=== PATIENT | male | born 1995 | race Caucasian/White ===

== ENCOUNTER 2018-04-16 00:46 | Emergency (ER) | payer SELFPAY ==
[~2018-04-16] VITALS: Ht 177.8 cm; Wt 65.0 kg
[~2018-04-16 00:46] MED LIST: IBUP800T23 PO; ROBA750T3 PO
[2018-04-16 00:48] VITALS: BP 141/62; PULSE 119; RESP 18; TEMP 99.4; O2SAT 100
[2018-04-16] MEDS ORDERED: LIDOCAINE HCL 1% PF 30 ML VIAL ONE (01:27)
[2018-04-16] MEDS ORDERED: LIDOCAINE HCL 1% 50 ML VIAL INFIL ONE (01:30)
[2018-04-16] MEDS ORDERED: IBUP1TAB7 PO (01:43)
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
[2018-04-16] MEDS ORDERED: ACETAMINOPHEN/CODEINE 300 MG/30 MG TAB PO ONE (01:45)
== END 2018-04-16 02:09 | disposition home or self-care (01) ==
LOC: NEPD 00:46
DX: S05.11XA Contusion of eyeball and orbital tissues, right eye, initial encounter (principal); S01.111A Laceration without foreign body of right eyelid and periocular area, initial encounter; F12.10 Cannabis abuse, uncomplicated; F17.200 Nicotine dependence, unspecified, uncomplicated; Y04.0XXA Assault by unarmed brawl or fight, initial encounter
CPT/HCPCS: 12011

== ENCOUNTER 2018-04-26 17:39 | Emergency (ER) | payer SELFPAY ==
[~2018-04-26] VITALS: Ht 180.3 cm; Wt 66.0 kg
[~2018-04-26 17:39] MED LIST changes: +IBUP1TAB7 PO
[2018-04-26 18:03] VITALS: BP 120/62; PULSE 60; RESP 17; TEMP 98.2; O2SAT 100
--- NOTE | 2018-04-26 18:17 | PD ---
HPI Chief Complaint: Wound/Suture/Staple Re-Check Time Seen by Provider: 18:07 Travel History International Travel<30 days: No Contact w/Intl Traveler<30days: No Traveled to known affect area: No History of Present Illness HPI 23-year-old male presents emergency department for suture removal of the right eyelid. Says that the sutures have not been a problem from him and he denies any significant pain. Denies fevers or chills. Denies visual disturbances or changes. PFSH Past Medical History Diminished Hearing: No Social History Alcohol Use: Yes (OCCASIONAL ) Tobacco Use: Yes (1/2 PPD) Substance Use: Yes (MARIJUANA DAILY) Allergies-Medications (Allergen,Severity, Reaction): Coded Allergies: No Known Allergies (Unverified Adverse Reaction, Unknown, 04/26/18) Reported Meds & Prescriptions Reported Meds & Active Scripts Active Ibuprofen 800 Mg Tab 800 Mg PO Q6HR PRN Robaxin-750 (Methocarbamol) 750 Mg Tab 750 Mg PO TID Ibuprofen 800 Mg Tab 800 Mg PO TID 10 Days Review of Systems Except as stated in HPI: all other systems reviewed are Neg Physical Exam Narrative GENERAL: Well-nourished, well-developed patient, in NAD SKIN: Focused skin assessment warm/dry. No rashes or lesions. Right eyelid-near the lid margin [address] without significant erythema or edema. Patient able to fully open and close his eyelid without restrictions HEAD: Normocephalic. Atraumatic. EYES: No scleral icterus. No injection or drainage. PERRLA, EOMI Airway is patent. NECK: Supple, trachea midline. No JVD or lymphadenopathy. No meningismus. MUSCULOSKELETAL: No cyanosis, or edema. BACK: Nontender without obvious deformity. No CVA tenderness. Data Data Last Documented VS Vital Signs Date Time Temp Pulse Resp B/P (MAP) Pulse Ox O2 Delivery O2 Flow Rate FiO2 04/26/18 18:03 98.2 60 17 120/62 (81) 100 MDM Medical Decision Making Medical Screen Exam Complete: Yes Emergency Medical Condition: Yes Differential Diagnosis Suture removal, cellulitis, erysipelas, abscess Narrative Course 23-year-old male presents emergency department for suture removal of the right eyelid. Says that the sutures have not been a problem from him and he denies any significant pain. Denies fevers or chills. Denies visual disturbances or changes. Vital signs are stable. Physical exam findings consistent with [address] on the right lid margin. Sutures removed without issue. Patient advised to follow-up with primary care physician. Monitor for signs of infection. Diagnosis Primary Impression: Visit for suture removal Referrals: Primary Care Physician Additional Instructions: Monitor for signs of infection to include redness, swelling and pain. You may wash the area as normal. Follow-up with primary care physician. Disposition: 01 DISCHARGE HOME Condition: Stable Karen Carballo Apr 26, 2018 18:17
== END 2018-04-26 18:23 | disposition home or self-care (01) ==
LOC: NEPK 17:39
DX: S01.111D Laceration without foreign body of right eyelid and periocular area, subsequent encounter (principal); Z48.02 Encounter for removal of sutures; X58.XXXD Exposure to other specified factors, subsequent encounter
CPT/HCPCS: 99281